=== PATIENT | male | born 1975 | race Caucasian/White ===

== ENCOUNTER 2022-12-05 19:53 | Emergency (ER) | payer BC ==
[~2022-12-05] VITALS: Ht 187.9 cm; Wt 113.4 kg
[~2022-12-05 19:53] MED LIST: NKHM
[2022-12-05 20:33] LABS: BASO % 0.4 % (0.0-1.0); EOS # 0.5 10*3/uL (0.0-0.4); EOS % 4.4 % (1.0-4.0); HEMATOCRIT 42.3 % (42.0-52.0); LYMPH % 9.7 % (27.0-41.0); MEAN CELL VOLUME 90.2 fl (80.0-94.0); MEAN CORPUSCULAR HGB 29.6 pg (27.0-31.0); MEAN CORPUSCULAR HGB CONC 32.9 g/dl (33.0-37.0); MEAN PLATELET VOLUME 9.1 fl (9.6-12.3); MONO # 0.6 10*3/uL (0.1-1.0); NEUT # 8.2 10*3/uL (2.3-7.9); NEUT % 78.8 % (47.0-73.0); PLATELET COUNT AUTOMATED 316 10*3/uL (130-400); RED BLOOD COUNT 4.69 10*6/uL (4.50-5.90); RED CELL DISTRI WIDTH 12.8 % (0-14.5); WHITE BLOOD COUNT 10.4 10*3/uL (4.8-10.8)
[2022-12-05 20:57] LABS: ALKALINE PHOSPHATASE 74 U/L (46-116); BUN 10 mg/dl (9-23); CHLORIDE 105 mmol/L (98-107); POTASSIUM 3.8 mmol/L (3.4-5.1); SGPT/ALT 22 U/L (10-49); TOTAL PROTEIN 7.2 gm/dL (6.0-8.0)
[2022-12-05] MEDS ORDERED: CLINDAMYCIN HC300 MG PO (21:21)
== END 2022-12-05 21:41 | disposition home or self-care (01) ==
LOC: ED 19:53
PROVIDERS: Physician Assistant Medical
DX: L03.116 Cellulitis of left lower limb (principal); J45.909 Unspecified asthma, uncomplicated; Z87.891 Personal history of nicotine dependence